=== PATIENT | male | born 1960 | race Caucasian/White ===

== ENCOUNTER 2017-10-11 15:44 | Inpatient (IN) | payer BC, OTHER ==
[~2017-10-11] VITALS: Ht 182.9 cm; Wt 136.7 kg
[2017-10-11] MEDS: SODIUM CHLORIDE 0.9% 1,000 ML IV SCH (00:05)
[2017-10-11 16:39] LABS: Basophils # (auto) 0.1 uL; Basophils % (auto) 0.4 % (0.0-2.0); Eosinophils # (auto) 0 uL; Hematocrit 45.8 % (41.0-53.0); Hemoglobin 15.1 g/dL (13.5-17.5); Lymphocytes # (auto) 1.2 uL; Lymphocytes % (auto) 7.4 % (10.0-50.0); Mean Corpuscular Hemoglobin 29.2 pg (28.0-32.0); Mean Corpuscular Volume 88.5 fL (80.0-100.0); Monocytes % (auto) 5.9 % (0.0-12.0); Neutrophils % (auto) 86.3 % (37.0-80.0); Platelet Count (auto) 448 10^3/uL (140-450); Red Blood Cells 5.18 10^6/uL (4.5-5.90); White Blood Cell 16.3 10^3/uL (4.4-10.8)
[2017-10-11 16:52] LABS: Albumin 4.7 g/dL (3.4-5.0); BUN/Creatinine Ratio 14.7; Bilirubin, Total 0.6 mg/dL (0.2-1.0); Calcium 9.9 mg/dL (8.5-10.1); Potassium 3.5 mmol/L (3.5-5.1); Total Protein 8.5 g/dL (6.4-8.2)
[2017-10-11 17:14] LABS: Magnesium 2.5 mg/dL (1.6-2.6)
[2017-10-11 18:22] LABS: Urine Amorphous Crystal FEW /hpf (None Seen); Urine Bacteria NONE SEEN /hpf (None Seen); Urine Blood Negative /uL (Negative); Urine Mucus FEW (None Seen); Urine Specific Gravity 1.025 (1.001-1.035); Urine WBC <1 /hpf (0 - 3)
[2017-10-11] MEDS ORDERED: SODIUM CHLORIDE 0.9% 1,000 ML IVB ONE (18:52)
[2017-10-11] MEDS ORDERED: ONDANSETRON HCL 4 MG/2 ML VIAL IV ONE (19:00)
[2017-10-11] MEDS ORDERED: MORPHINE SULFATE 4 MG/ML SYR/VIAL IV ONE (19:00)
[2017-10-11 19:13] LABS: Amylase 50 U/L (25-115); Lipase 386 U/L (73-393)
[2017-10-11 19:21] LABS: Prothrombin Time 10.9 sec (9.37-12.3)
[2017-10-11] MEDS ORDERED: PANTOPRAZOLE 40 MG/10 ML VIAL IV ONE (23:00)
[2017-10-11] MEDS ORDERED: LEVOFLOXACIN 500MG 100 ML IV ONE (23:00)
[2017-10-11] MEDS ORDERED: ACETAMINOPHEN 325 MG TAB PO PRN (23:00)
[2017-10-11] MEDS ORDERED: TEMAZEPAM 15 MG CAP PO PRN (23:00)
[2017-10-11] MEDS ORDERED: MORPHINE SULFATE 4 MG/ML SYR/VIAL IV PRN (23:00)
[2017-10-11] MEDS ORDERED: cloNIDine HCL 0.1 MG TAB PO PRN (23:00)
[2017-10-12] MEDS: HYDROcodone-ACET 5/325MG TAB PO PRN ×2 (01:12→08:41)
[2017-10-12 06:02] LABS: Basophils # (auto) 0 uL; Basophils % (auto) 0.2 % (0.0-2.0); Eosinophils # (auto) 0 uL; Hematocrit 41.4 % (41.0-53.0); Hemoglobin 13.6 g/dL (13.5-17.5); Lymphocytes # (auto) 1.3 uL; Lymphocytes % (auto) 9.5 % (10.0-50.0); Mean Corpuscular Hemoglobin 29.1 pg (28.0-32.0); Mean Corpuscular Hgb Conc. 32.9 g/dL (32.0-36.0); Mean Corpuscular Volume 88.3 fL (80.0-100.0); Monocytes # (auto) 1.1 uL; Neutrophils # (auto) 11.3 uL; Neutrophils % (auto) 82.3 % (37.0-80.0); Nucleated Red Blood Cells % 0.1 %; Platelet Count (auto) 386 10^3/uL (140-450); Red Blood Cells 4.68 10^6/uL (4.5-5.90); Red Cell Distribution Width 14.9 % (11.8-14.3); White Blood Cell 13.8 10^3/uL (4.4-10.8)
[2017-10-12 06:16] LABS: Bilirubin, Total 0.8 mg/dL (0.2-1.0); Calcium 9.1 mg/dL (8.5-10.1); Potassium 3.2 mmol/L (3.5-5.1); Total Protein 7.6 g/dL (6.4-8.2)
[2017-10-12] MEDS: LEVOTHYROXINE SODIUM 50 MCG TAB PO SCH (07:00)
[2017-10-12] MEDS: ONDANSETRON HCL 4 MG/2 ML VIAL IV PRN ×2 (07:36→13:54)
[2017-10-12 08:40] VITALS: BP 196/84
[2017-10-12] MEDS: HYDROcodone-ACET 10/325MG TAB PO PRN ×4 (09:24→21:44)
[2017-10-12] MEDS ORDERED: PANTOPRAZOLE 40 MG/10 ML VIAL IV SCH (10:00)
[2017-10-12] MEDS: amLODIPine BESYLATE 5 MG TAB PO SCH (10:18)
[2017-10-12] MEDS: MORPHINE SULFATE 4 MG/ML SYR/VIAL IV PRN ×5 (10:18→23:45)
[2017-10-12] MEDS: ENOXAPARIN SOD 40 MG/0.4 ML SYRINGE SC SCH (10:18)
[2017-10-12] MEDS ORDERED: LEVO100T8 PO (10:26)
[2017-10-12] MEDS ORDERED: LEVO5TAB2 PO (10:26)
[2017-10-12] MEDS ORDERED: OXY20CRT PO (10:26)
[2017-10-12] MEDS ORDERED: CELE100C82 PO (10:26)
[2017-10-12] MEDS ORDERED: AMLO-25 PO (10:26)
[2017-10-12] MEDS ORDERED: TRAM50TA2 PO (10:26)
[2017-10-12] MEDS ORDERED: MONT10TA23 PO (10:26)
[2017-10-12] MEDS ORDERED: CHOL20007 PO (10:26)
[2017-10-12 12:00] VITALS: BP 157/73
[2017-10-12] MEDS: SODIUM CHLORIDE 0.9% 1,000 ML IV SCH (12:05)
[2017-10-12 17:00] VITALS: BP 162/83
[2017-10-12 20:00] VITALS: BP 111/62
[2017-10-12] MEDS: PANTOPRAZOLE 40 MG/10 ML VIAL IV SCH (21:43)
[2017-10-12 22:00] VITALS: BP 111/62
[2017-10-12] MEDS ORDERED: MONTELUKAST SODIUM 10 MG TAB PO SCH (22:00)
[2017-10-12] MEDS ORDERED: LEVOFLOXACIN 500MG 100 ML IV SCH (22:00)
[2017-10-13] MEDS: HYDROcodone-ACET 10/325MG TAB PO PRN ×3 (02:16→13:07)
[2017-10-13] MEDS: MORPHINE SULFATE 4 MG/ML SYR/VIAL IV PRN ×3 (02:44→10:01)
[2017-10-13] MEDS: SODIUM CHLORIDE 0.9% 1,000 ML IV SCH ×2 (02:45→10:25)
[2017-10-13 05:00] VITALS: BP 144/66
[2017-10-13 05:17] LABS: Basophils # (auto) 0 uL; Basophils % (auto) 0.4 % (0.0-2.0); Eosinophils # (auto) 0 uL; Eosinophils % (auto) 0.2 % (0.0-7.0); Hematocrit 39.7 % (41.0-53.0); Hemoglobin 13.3 g/dL (13.5-17.5); Lymphocytes # (auto) 1.5 uL; Lymphocytes % (auto) 18.4 % (10.0-50.0); Mean Corpuscular Hemoglobin 29.5 pg (28.0-32.0); Mean Corpuscular Hgb Conc. 33.4 g/dL (32.0-36.0); Mean Corpuscular Volume 88.5 fL (80.0-100.0); Monocytes # (auto) 0.7 uL; Monocytes % (auto) 8.4 % (0.0-12.0); Neutrophils # (auto) 5.8 uL; Neutrophils % (auto) 72.6 % (37.0-80.0); Nucleated Red Blood Cells % 0.1 %; Platelet Count (auto) 299 10^3/uL (140-450); Red Blood Cells 4.49 10^6/uL (4.5-5.90); Red Cell Distribution Width 14.5 % (11.8-14.3); White Blood Cell 7.9 10^3/uL (4.4-10.8)
[2017-10-13 05:33] LABS: Calcium 8.5 mg/dL (8.5-10.1); Potassium 3.1 mmol/L (3.5-5.1)
[2017-10-13 05:37] LABS: Albumin 3.7 g/dL (3.4-5.0); BUN/Creatinine Ratio 14.8
[2017-10-13 05:41] LABS: Bilirubin, Total 0.7 mg/dL (0.2-1.0); Total Protein 6.8 g/dL (6.4-8.2)
[2017-10-13] MEDS: LEVOTHYROXINE SODIUM 50 MCG TAB PO SCH (06:39)
[2017-10-13 08:13] VITALS: BP 134/75
[2017-10-13 08:29] VITALS: BP 134/75
[2017-10-13] MEDS ORDERED: LIDOCAINE VISCOUS 2% 15ML UD ONE (08:43)
[2017-10-13] MEDS ORDERED: NALOXONE HCL 0.4 MG/ML VIAL ONE (08:43)
[2017-10-13] MEDS ORDERED: FLUMAZENIL 0.1 MG/ML INJ 10ML MDV IV ONE (08:43)
[2017-10-13] MEDS ORDERED: diphenhdrAMINE HCL 50 MG/1 ML VL ONE (08:44)
[2017-10-13] MEDS: ENOXAPARIN SOD 40 MG/0.4 ML SYRINGE SC SCH (09:14)
[2017-10-13] MEDS: PANTOPRAZOLE 40 MG/10 ML VIAL IV SCH (10:00)
[2017-10-13] MEDS: amLODIPine BESYLATE 5 MG TAB PO SCH (10:00)
[2017-10-13] MEDS: MIDAZOLAM HCL 5 MG/ML-1ML VIAL ONE ×2 (11:26→11:29)
[2017-10-13] MEDS: fentaNYL CITRATE 100 MCG/2 ML VL ONE ×2 (11:26→11:29)
[2017-10-13 13:35] VITALS: BP 130/75
[2017-10-13] MEDS ORDERED: PANTOPRAZOLE 40 MG TAB PO SCH (22:00)
== END 2017-10-13 14:25 | disposition home or self-care (01) | DRG 378 ==
LOC: ER 15:44 → OVERFLOW 15:45 → WEST WING 10-12 07:58
PROVIDERS: ADMIT Nurse Practitioner; ATTEND Family Medicine
PROC: 0DB68ZX Excision of Stomach, Via Natural or Artificial Opening Endoscopic, Diagnostic (ICD-10-PCS; principal; 2017-10-13 11:22)
DX: K29.61 Other gastritis with bleeding (principal); Z68.41 Body mass index [BMI] 40.0-44.9, adult; E66.01 Morbid (severe) obesity due to excess calories; D72.829 Elevated white blood cell count, unspecified; E03.9 Hypothyroidism, unspecified; G89.29 Other chronic pain; J30.2 Other seasonal allergic rhinitis; E78.5 Hyperlipidemia, unspecified; E86.0 Dehydration; I10 Essential (primary) hypertension; Z82.49 Family history of ischemic heart disease and other diseases of the circulatory system; Z88.0 Allergy status to penicillin; G47.00 Insomnia, unspecified
CPT/HCPCS: 36415; 43239; 71045; 74176; 80053; 81001; 82150; 82962; 83605; 83690; 83735; 84484; 85025; 85610; 85730; 87040; 87045; 87493; 87899; 93005; 94761; 96361; 96374; 96375; C9113; J1956; J2250; J2405

== ENCOUNTER 2018-03-08 14:02 | Inpatient (IN) | payer BC, OTHER ==
[~2018-03-08] VITALS: Ht 182.9 cm; Wt 134.5 kg
[~2018-03-08 14:02] MED LIST: AMLO-25 PO; CELE100C82 PO; LEVO137T3 PO; METF-370 PO; MONT10TA23 PO; MONT5CHW17 PO; OXY20CRT PO
[2018-03-08] MEDS ORDERED: PANTOPRAZOLE 40 MG/10 ML VIAL IV STA (15:12)
[2018-03-08] MEDS ORDERED: SODIUM CHLORIDE 0.9% 500 ML IVB ONE (15:12)
[2018-03-08] MEDS ORDERED: ONDANSETRON HCL 4 MG/2 ML VIAL IV ONE (15:15)
[2018-03-08] MEDS ORDERED: MORPHINE SULFATE 4 MG/ML SYR/VIAL IV ONE (15:15)
[2018-03-08 15:16] LABS: Basophils # (auto) 0 uL; Basophils % (auto) 0.1 % (0.0-2.0); Eosinophils # (auto) 0 uL; Hematocrit 42.8 % (41.0-53.0); Hemoglobin 14.4 g/dL (13.5-17.5); Lymphocytes # (auto) 0.8 uL; Lymphocytes % (auto) 7.3 % (10.0-50.0); Mean Corpuscular Hemoglobin 28.3 pg (28.0-32.0); Mean Corpuscular Hgb Conc. 33.6 g/dL (32.0-36.0); Mean Corpuscular Volume 84.3 fL (80.0-100.0); Monocytes # (auto) 0.4 uL; Monocytes % (auto) 3.6 % (0.0-12.0); Neutrophils # (auto) 10.1 uL; Platelet Count (auto) 450 10^3/uL (140-450); Red Blood Cells 5.08 10^6/uL (4.5-5.90); Red Cell Distribution Width 15.5 % (11.8-14.3); White Blood Cell 11.3 10^3/uL (4.4-10.8)
[2018-03-08 16:24] LABS: Alanine Aminotransferase 30 U/L (16-61); Albumin 4.5 g/dL (3.4-5.0); Calcium 8.9 mg/dL (8.5-10.1); Carbon Dioxide 23 mmol/L (21-32); GFR African American 100 mL/min; GFR Non-African American 82 mL/min; Glucose 136 mg/dL (74-106)
[2018-03-08 16:25] LABS: Amylase 39 U/L (25-115); Lipase 212 U/L (73-393)
[2018-03-08 16:29] LABS: Aspartate Aminotransferase 16 U/L (15-37); Bilirubin, Total 0.6 mg/dL (0.2-1.0); Blood Urea Nitrogen 12 mg/dL (7-18); Total Protein 8.6 g/dL (6.4-8.2)
[2018-03-08] MEDS ORDERED: SODIUM CHLORIDE 0.9% 1,000 ML IV SCH (17:06)
[2018-03-08 17:07] LABS: Alkaline Phosphatase 154 U/L (45-117); Anion Gap 15 (5-15); Chloride 104 mmol/L (98-107); Sodium 142 mmol/L (136-145)
[2018-03-08] MEDS ORDERED: HYDROcodone-ACET 5/325MG TAB PO PRN (17:15)
[2018-03-08] MEDS ORDERED: MORPHINE SULF INJ 2 MG/ML SYRINGE 1ML IV PRN ×2 (17:15→18:00)
[2018-03-08] MEDS ORDERED: LORazepam 0.5 MG TAB PO PRN (17:15)
[2018-03-08] MEDS ORDERED: cefTRIAXone 1GM/10ml IVPUSH 10 ML IV ONE (17:15)
[2018-03-08] MEDS ORDERED: PROMETHAZINE HCL 25 MG/ML 1ML IV PRN (17:15)
[2018-03-08] MEDS ORDERED: ACETAMINOPHEN 500 MG TAB PO PRN (17:15)
[2018-03-08] MEDS ORDERED: TEMAZEPAM 15 MG CAP PO PRN (17:15)
[2018-03-08 17:21] LABS: Potassium 2.8 mmol/L (3.5-5.1)
[2018-03-08] MEDS: MONTELUKAST SODIUM 10 MG TAB PO SCH ×2 (17:40→22:18)
[2018-03-08] MEDS ORDERED: POTASSIUM CHL 20 Meq TABLET PO ONE (17:45)
[2018-03-08] MEDS ORDERED: NITROGLYCERIN 0.4 MG SL TAB SL PRN (18:00)
[2018-03-08] MEDS ORDERED: SOD CHL 0.9%/ KCL 40MEQ 1,000 ML IV ONE (18:00)
[2018-03-08] MEDS: MORPHINE SULF INJ 2 MG/ML SYRINGE 1ML IV PRN ×2 (18:54→23:41)
[2018-03-08] MEDS: POTASSIUM CHL 20MEQ/100ML 100 ML IV SCH ×2 (19:06→22:18)
[2018-03-08 20:30] VITALS: BP 137/71
[2018-03-08] MEDS: oxyCODONE ER 20 MG TAB PO PRN (21:22)
[2018-03-08 22:00] VITALS: BP 137/71
[2018-03-08] MEDS: metroNIDAZOLE 500MG/100ML 100 ML IV SCH (22:18)
[2018-03-09] MEDS: POTASSIUM CHL 20MEQ/100ML 100 ML IV SCH ×4 (00:26→15:19)
[2018-03-09 03:05] LABS: Urine Amorphous Crystal FEW /hpf (None Seen); Urine Bacteria NONE SEEN /hpf (None Seen); Urine Blood Negative /uL (Negative); Urine Mucus FEW (None Seen); Urine Specific Gravity 1.024 (1.001-1.035); Urine WBC 5 /hpf (0 - 3)
[2018-03-09] MEDS: MORPHINE SULF INJ 2 MG/ML SYRINGE 1ML IV PRN ×5 (03:41→22:05)
[2018-03-09 05:00] VITALS: BP 144/73
[2018-03-09] MEDS: LEVOTHYROXINE SODIUM 25 MCG TAB PO SCH (06:08)
[2018-03-09] MEDS: LEVOTHYROXINE SODIUM 112 MCG TAB PO SCH (06:08)
[2018-03-09] MEDS: metroNIDAZOLE 500MG/100ML 100 ML IV SCH ×3 (06:08→21:59)
[2018-03-09] MEDS: oxyCODONE ER 20 MG TAB PO PRN ×3 (06:12→23:21)
[2018-03-09 07:14] LABS: Basophils # (auto) 0 uL; Basophils % (auto) 0.4 % (0.0-2.0); Eosinophils # (auto) 0 uL; Eosinophils % (auto) 0.2 % (0.0-7.0); Hematocrit 36.2 % (41.0-53.0); Hemoglobin 12.2 g/dL (13.5-17.5); Lymphocytes # (auto) 1.6 uL; Lymphocytes % (auto) 19.5 % (10.0-50.0); Mean Corpuscular Hemoglobin 28.5 pg (28.0-32.0); Mean Corpuscular Hgb Conc. 33.7 g/dL (32.0-36.0); Mean Corpuscular Volume 84.6 fL (80.0-100.0); Monocytes # (auto) 0.6 uL; Monocytes % (auto) 7.2 % (0.0-12.0); Neutrophils % (auto) 72.7 % (37.0-80.0); Platelet Count (auto) 319 10^3/uL (140-450); Red Blood Cells 4.28 10^6/uL (4.5-5.90); Red Cell Distribution Width 15.6 % (11.8-14.3); White Blood Cell 8.3 10^3/uL (4.4-10.8)
[2018-03-09 07:26] LABS: Albumin 3.4 g/dL (3.4-5.0); Calcium 7.9 mg/dL (8.5-10.1)
[2018-03-09 07:27] LABS: BUN/Creatinine Ratio 13.3
[2018-03-09 07:29] LABS: Bilirubin, Total 0.5 mg/dL (0.2-1.0); Total Protein 6.6 g/dL (6.4-8.2)
[2018-03-09 09:00] VITALS: BP 136/79
[2018-03-09] MEDS ORDERED: PATIENTS OWN MEDICATION (Montelukast Sodium (Singulair) 10 MG) PO SCH (10:00)
[2018-03-09] MEDS: AMLODIPINE PO SCH (10:00)
[2018-03-09] MEDS ORDERED: PANTOPRAZOLE 40 MG TAB PO SCH (10:00)
[2018-03-09] MEDS: OLMESARTAN PO SCH (10:00)
[2018-03-09] MEDS: cefTRIAXone 1GM/10ml IVPUSH 10 ML IV SCH (10:40)
[2018-03-09 12:51] VITALS: BP 129/75
[2018-03-09 16:32] VITALS: BP 121/71
[2018-03-09 20:00] VITALS: BP 124/69
[2018-03-09 22:00] VITALS: BP 126/69
[2018-03-09] MEDS: PANTOPRAZOLE 40 MG TAB PO SCH (22:00)
[2018-03-09] MEDS: MONTELUKAST SODIUM 10 MG TAB PO SCH (22:00)
[2018-03-10] MEDS: MORPHINE SULF INJ 2 MG/ML SYRINGE 1ML IV PRN ×4 (02:16→14:24)
[2018-03-10 05:28] VITALS: BP 144/76
[2018-03-10 05:36] LABS: Basophils # (auto) 0.1 uL; Basophils % (auto) 0.9 % (0.0-2.0); Eosinophils # (auto) 0.1 uL; Eosinophils % (auto) 1.5 % (0.0-7.0); Hemoglobin 12.2 g/dL (13.5-17.5); Lymphocytes # (auto) 1.4 uL; Lymphocytes % (auto) 21.1 % (10.0-50.0); Mean Corpuscular Hemoglobin 28.8 pg (28.0-32.0); Mean Corpuscular Hgb Conc. 33.9 g/dL (32.0-36.0); Mean Corpuscular Volume 84.8 fL (80.0-100.0); Monocytes # (auto) 0.5 uL; Monocytes % (auto) 7.3 % (0.0-12.0); Neutrophils # (auto) 4.7 uL; Neutrophils % (auto) 69.2 % (37.0-80.0); Platelet Count (auto) 288 10^3/uL (140-450); Red Blood Cells 4.24 10^6/uL (4.5-5.90); Red Cell Distribution Width 15.2 % (11.8-14.3); White Blood Cell 6.9 10^3/uL (4.4-10.8)
[2018-03-10 06:00] LABS: Albumin 3.6 g/dL (3.4-5.0); BUN/Creatinine Ratio 13.6; Bilirubin, Total 0.5 mg/dL (0.2-1.0); Calcium 8.1 mg/dL (8.5-10.1); Potassium 3.2 mmol/L (3.5-5.1); Total Protein 6.7 g/dL (6.4-8.2)
[2018-03-10] MEDS: LEVOTHYROXINE SODIUM 25 MCG TAB PO SCH (06:00)
[2018-03-10] MEDS: LEVOTHYROXINE SODIUM 112 MCG TAB PO SCH (06:00)
[2018-03-10] MEDS: metroNIDAZOLE 500MG/100ML 100 ML IV SCH (06:00)
[2018-03-10] MEDS: PANTOPRAZOLE 40 MG TAB PO SCH (08:30)
[2018-03-10] MEDS: OLMESARTAN PO SCH (08:30)
[2018-03-10] MEDS: cefTRIAXone 1GM/10ml IVPUSH 10 ML IV SCH (08:30)
[2018-03-10] MEDS: AMLODIPINE PO SCH (08:30)
[2018-03-10] MEDS: oxyCODONE ER 20 MG TAB PO PRN (08:31)
[2018-03-10 09:15] VITALS: BP 136/82
[2018-03-10 13:26] VITALS: BP 136/72
== END 2018-03-10 16:37 | disposition home or self-care (01) | DRG 392 ==
LOC: ER 14:05 → TELE 14:06 → TELE-WESTW 19:58
PROVIDERS: ADMIT Internal Medicine; ATTEND Family Medicine
DX: K52.9 Noninfective gastroenteritis and colitis, unspecified (principal); Z68.41 Body mass index [BMI] 40.0-44.9, adult; E78.00 Pure hypercholesterolemia, unspecified; E87.6 Hypokalemia; E89.0 Postprocedural hypothyroidism; G89.29 Other chronic pain; I10 Essential (primary) hypertension; E66.01 Morbid (severe) obesity due to excess calories; M54.9 Dorsalgia, unspecified; K40.90 Unilateral inguinal hernia, without obstruction or gangrene, not specified as recurrent; E78.5 Hyperlipidemia, unspecified; R56.9 Unspecified convulsions; Z82.49 Family history of ischemic heart disease and other diseases of the circulatory system; Z85.528 Personal history of other malignant neoplasm of kidney; Z88.0 Allergy status to penicillin
CPT/HCPCS: 36415; 74176; 76775; 80053; 81001; 82150; 83690; 84484; 85025; 87045; 87081; 87086; 87899; 93005; 94761; 96361; 96374; 96375; 96376; A6257; C9113; J0696; J2405; J3480; J3490